=== PATIENT | male | born 1980 | race Caucasian/White ===

== ENCOUNTER 2021-02-25 07:49 | Emergency (ER) | payer OTHER ==
[~2021-02-25] VITALS: Ht 167.6 cm; Wt 136.4 kg
[2021-02-25 07:56] VITALS: BP 150/95
[2021-02-25] MEDS ORDERED: HYDROCODONE/ACETAMINOPHEN 5-325 MG TABLET PO ONE (08:00)
[2021-02-25] MEDS ORDERED: KETOROLAC TROMETHAMINE 30 MG/ML VIAL IM ONE (08:00)
[2021-02-25] MEDS ORDERED: GLIP5 PO (08:11)
[2021-02-25] MEDS ORDERED: METF-445 PO (08:11)
[2021-02-25] MEDS ORDERED: SITA100 PO (08:11)
[2021-02-25] MEDS ORDERED: LOSA100T58 PO (08:11)
[2021-02-25] MEDS ORDERED: HYDR25TA PO (08:11)
[2021-02-25] MEDS ORDERED: FLUT110HFA PO (08:12)
[2021-02-25 09:41] LABS: GLUCOSE,POINT OF CARE 258 MG/DL (70-110)
== END 2021-02-25 10:05 | disposition home or self-care (01) ==
LOC: EMS 07:52
DX: S39.012A Strain of muscle, fascia and tendon of lower back, initial encounter (principal); X58.XXXA Exposure to other specified factors, initial encounter; Y93.89 Activity, other specified; Y92.89 Other specified places as the place of occurrence of the external cause; Y99.8 Other external cause status
CPT/HCPCS: 72131; 82962; 99284; J1885